=== PATIENT | female | born 1930 | race Caucasian/White ===

== ENCOUNTER → 2016-04-26 | Outpatient (CLI) | payer OTHER, BC ==
[~2016-04-26] MED LIST: ACTONEL35 MG PO; ALAVERT10 MG PO; AMLODIPINE BESY10 MG PO; APRESOLINE10 MG GT; ATIVAN0.5 MG GT; ATIVAN0.5 MG PO; ATIVAN1 MG PO; AZITHROMYCIN250 MG1 PO; Actonel PO; Ativan PO; BACID1 CAP PO; BISACODYL SUPP10 MG PR; BUSPAR10 MG PO; CALCIUM 600 +1 EA17 GT; CALCIUM 600 +1 EAC2 PO; CALCIUM 600 +1 EAC5 PO; CALCIUM500 M3 PO; CATAPRES-TTS 11 EACH TD; CLARITIN,ALAVAR10 MG PO; COLACE10 MG/ML PO; COUMADIN,JANTOVE4 MG PO; COUMADIN1 MG GT; COUMADIN2.5 MG PO; COUMADIN3 MG GT; COUMADIN3 MG PO; COUMADIN4 MG PO; DEPAKENE250 MG/5 M GT; DEPAKENE250 MG/5 M PO; DEPAKOTE SPRIN125 MG PO; DEPAKOTE125 MG PO; DIVALPROEX SOD125 M1 PO; DUONEB 2.5-0.5 M3 ML AEROSOL; DUONEB 2.5-0.5 M3 ML IH; ENDOCET 5-3251 EACH PO; FLAGYL500 MG PO; FLEET ENEMA-AD118 ML PR; FORTAMET500 MG PO; FUROSEMIDE40 MG GT; FUROSEMIDE40 MG PO; HEARTBURN RELIE75 MG PO; IBUPROFEN100 MG/5 M GT; IBUPROFEN600 MG PO; IBUPROFEN800 MG PO; ILOTYCIN1 GM BOTH EYES; IPRATROPIU0.2 MG/1 M IH; IPRATROPIUM; Invanz IV; K-TAB10 MEQ PO; LASIX10 MG/ML GT; LASIX10 MG/ML PO; LEVAQUIN500 MG PO; LEVOTHROID,SY0.15 MG PO; LISINOPRIL10 MG PO; LOSARTAN POTASS50 MG GT; Levothroid,Synthroid PO; METOPROLOL TART25 MG PO; MILK OF MAGN GT; MIRALAX17 GM GT; Maalox, Mylanta PO; NORVASC10 MG PO; NORVASC5 MG PO; NOVOLOG PE100 UNITS/ SC; OCUSOFT LID SC1 EACH TP; OLOPATADINE HCL5 ML BOTH EYES; PATADAY2.5 ML BOTH EYES; PERCOCET 5-3251 EACH PO; PERCOCET 7.5-31 EACH PO; PHENADOZ25 MG PR; POTASSIUM20 MEQ/11 GT; PRAVASTATIN SOD40 MG PO; PREDNISONE10 MG PO; PRILOSEC20 MG PO; PRINIVIL20 MG PO; PROMETHAZINE HC25 M1 PO; RANITIDINE15 MG/1 ML GT; REMERON30 M2 PO; REMERON45 MG PO; SENNA8.6 MG PO; SIMVASTATIN20 MG PO; SYNTHROID100 MCG PO; SYNTHROID150 MCG GT; SYNTHROID150 MCG PO; THERA-TABS M C1 EACH PO; THERAGRAN1 TABLET PO; TRAMADOL HCL50 MG GT; TUMS500 MG; TUMS500 MG PO; Tums PO; ULTRAM50 MG PO; VITAMIN D250000 UNIT PO; VITAMIN D400 INTUNI PO; Vitamin D, Drisdol PO; ZANTAC150 MG PO; ZITHROMAX250 MG PO; ZOFRAN4 MG PO; ZOLOFT20 MG/ML GT; Zocor PO
== END ==
LOC: RAD 13:30 → EDSTATUS 14:00 → RAD 14:00
PROC: 0DH67UZ Insertion of Feeding Device into Stomach, Via Natural or Artificial Opening (ICD-10-PCS; principal; 2016-04-26)
DX: K94.20 Gastrostomy complication, unspecified (principal)
CPT/HCPCS: C1769

== ENCOUNTER 2016-05-18 22:01 | Emergency (ER) | payer OTHER, BC ==
[~2016-05-18] VITALS: Ht 170.2 cm; Wt 72.7 kg
[2016-05-18 23:21] VITALS: BP 153/104
== END 2016-05-18 23:39 ==
LOC: EME 22:01
DX: Z43.1 Encounter for attention to gastrostomy (principal); I11.0 Hypertensive heart disease with heart failure; I50.9 Heart failure, unspecified; E11.9 Type 2 diabetes mellitus without complications; J44.9 Chronic obstructive pulmonary disease, unspecified; E05.90 Thyrotoxicosis, unspecified without thyrotoxic crisis or storm; F03.90 Unspecified dementia, unspecified severity, without behavioral disturbance, psychotic disturbance, mood disturbance, and anxiety; Z86.73 Personal history of transient ischemic attack (TIA), and cerebral infarction without residual deficits; Z79.01 Long term (current) use of anticoagulants
CPT/HCPCS: 74000; 99281; 99284

== ENCOUNTER → 2016-05-19 | Outpatient (CLI) | payer OTHER, BC | LOC: RAD 14:04 | PROC: 0DH67UZ Insertion of Feeding Device into Stomach, Via Natural or Artificial Opening (ICD-10-PCS; principal; 2016-05-19) | DX: K94.23 Gastrostomy malfunction (principal) | CPT/HCPCS: C1769 ==

== ENCOUNTER 2016-07-01 19:59 | Emergency (ER) | payer OTHER, BC ==
[~2016-07-01] VITALS: Ht 167.6 cm; Wt 60.3 kg
[2016-07-01 21:27] LABS: HEMATOCRIT 40.1 % (36.0-46.0); MCH 31.7 PG (29.0-34.0); MCHC 33.9 G/DL (30.0-36.0); MCV 93.5 FL (83-99); MEAN PLAT.VOLUME 11.5 uM^3 (9.5-12.4); PLATELET COUNT 114 K/uL (156-360); RBC DIS.WIDTH-CV 14.8 % (11.8-14.6); RED BLOOD COUNT 4.29 M/uL (3.80-5.20); WHITE BLOOD COUNT 5.6 K/uL (4.1-10.2)
[2016-07-01 21:35] LABS: CHLORIDE 100 mEq/L (99-109); POTASSIUM 3.7 mEq/L (3.7-5.4); SODIUM 140 mEq/L (136-147)
[2016-07-01 21:37] LABS: GLUCOSE 91 mg/dL (70-99); INTER. NORMALIZED RATIO 2.1; PROTHROMBIN TIME 21.5 (9.2-11.2)
[2016-07-01 21:38] LABS: ANION GAP 9 MEQ/L (2-14)
[2016-07-01 21:41] LABS: GFR ESTIMATE (CALCULATED) > 59 mL/min/; UREA NITROGEN (BUN) 16 mg/dL (9-23)
[2016-07-02 00:18] VITALS: BP 156/112
== END 2016-07-02 00:19 ==
LOC: EME 19:59
PROVIDERS: Emergency Medicine
PROC: 0D20XUZ Change Feeding Device in Upper Intestinal Tract, External Approach (ICD-10-PCS; principal; 2016-07-01)
DX: Z43.1 Encounter for attention to gastrostomy (principal); I11.0 Hypertensive heart disease with heart failure; I50.9 Heart failure, unspecified; E11.9 Type 2 diabetes mellitus without complications; J44.9 Chronic obstructive pulmonary disease, unspecified; Z86.73 Personal history of transient ischemic attack (TIA), and cerebral infarction without residual deficits; E05.90 Thyrotoxicosis, unspecified without thyrotoxic crisis or storm; F03.90 Unspecified dementia, unspecified severity, without behavioral disturbance, psychotic disturbance, mood disturbance, and anxiety; Z79.01 Long term (current) use of anticoagulants
CPT/HCPCS: 80048; 85027; 85610; 99281; 99284; C1766

== ENCOUNTER 2016-07-02 14:39 | Emergency (ER) | payer OTHER, BC ==
[~2016-07-02] VITALS: Ht 162.6 cm; Wt 64.7 kg
[2016-07-02 20:10] VITALS: BP 158/115
== END 2016-07-02 20:12 ==
LOC: EME 14:39
PROC: 0DH67UZ Insertion of Feeding Device into Stomach, Via Natural or Artificial Opening (ICD-10-PCS; principal; 2016-07-02)
DX: Z43.1 Encounter for attention to gastrostomy (principal); E11.9 Type 2 diabetes mellitus without complications; I11.0 Hypertensive heart disease with heart failure; I50.9 Heart failure, unspecified; E03.9 Hypothyroidism, unspecified; Z86.73 Personal history of transient ischemic attack (TIA), and cerebral infarction without residual deficits; Z88.6 Allergy status to analgesic agent; Z88.0 Allergy status to penicillin
CPT/HCPCS: 74000; 99281; 99284; J2060

== ENCOUNTER → 2016-07-03 | Outpatient (CLI) | payer OTHER, BC | LOC: RAD 14:00 | PROC: 0DH67UZ Insertion of Feeding Device into Stomach, Via Natural or Artificial Opening (ICD-10-PCS; principal; 2016-07-03) | DX: K94.20 Gastrostomy complication, unspecified (principal) | CPT/HCPCS: C1766; C1769 ==

== ENCOUNTER 2016-08-11 22:50 | Inpatient (IN) | payer OTHER, BC ==
[~2016-08-11] VITALS: Ht 162.6 cm; Wt 69.1 kg
[~2016-08-11 22:50] MED LIST changes: +TUMS500 MG GT
[2016-08-12 00:37] LABS: HEMATOCRIT 39.9 % (36.0-46.0); MCH 31.2 PG (29.0-34.0); MCHC 33.1 G/DL (30.0-36.0); MCV 94.3 FL (83-99); MEAN PLAT.VOLUME 11.7 uM^3 (9.5-12.4); PLATELET COUNT 108 K/uL (156-360); RBC DIS.WIDTH-CV 14.5 % (11.8-14.6); RBC DIS.WIDTH-SD 50.4 % (39-53); RED BLOOD COUNT 4.23 M/uL (3.80-5.20); WHITE BLOOD COUNT 5.7 K/uL (4.1-10.2)
[2016-08-12 00:45] LABS: CHLORIDE 98 mEq/L (99-109); POTASSIUM 3.9 mEq/L (3.7-5.4)
[2016-08-12 00:46] LABS: SODIUM 139 mEq/L (136-147)
[2016-08-12 00:48] LABS: GLUCOSE 107 mg/dL (70-99)
[2016-08-12 00:49] LABS: ANION GAP 10 MEQ/L (2-14)
[2016-08-12 00:50] LABS: TOTAL BILIRUBIN 0.7 mg/dL (0.0-1.0)
[2016-08-12 00:51] LABS: ALKALINE PHOSPHATASE 61 IU/L (3-129); GFR ESTIMATE (CALCULATED) > 59 mL/min/
[2016-08-12 00:53] LABS: UREA NITROGEN (BUN) 21 mg/dL (9-23)
[2016-08-12 00:55] LABS: LIPASE 3 U/L (1.0-51.0)
[2016-08-12 03:54] VITALS: BP 133/68
[2016-08-12 07:15] VITALS: BP 170/90
[2016-08-12 07:40] LABS: METH RESISTANT S AUREUS PCR POSITIVE (NEGATIVE)
[2016-08-12 07:44] LABS: PROBE CHECK PASS
[2016-08-12] MEDS ORDERED: LASIX10 MG/ML GT ×2 (11:43→11:44)
[2016-08-12 16:00] VITALS: BP 137/72
[2016-08-12 17:23] VITALS: BP 137/72
[2016-08-12] MEDS ORDERED: GUAIFENESIN WI120 ML GT (18:13)
[2016-08-12] MEDS ORDERED: ACIDOPHILUS1 EAC3 PO (18:15)
[2016-08-12] MEDS ORDERED: POTASSIUM20 MEQ/11 GT (18:18)
[2016-08-12] MEDS ORDERED: SYNTHROID200 MCG GT (18:22)
[2016-08-12] MEDS ORDERED: LEVAQUIN500 MG GT (18:23)
[2016-08-12] MEDS ORDERED: SERTRALINE20 MG/1 ML GT (18:28)
[2016-08-12] MEDS ORDERED: LOSARTAN POTASS25 MG GT (18:29)
[2016-08-12] MEDS ORDERED: COUMADIN2.5 MG GT (18:31)
[2016-08-12] MEDS ORDERED: WARFARIN SODIUM3 MG GT (18:33)
[2016-08-12] MEDS ORDERED: DULCOLAX10 MG PR (18:34)
[2016-08-12] MEDS ORDERED: PHILLIPS'400 MG/5 M GT (18:35)
[2016-08-12] MEDS ORDERED: FLEET ENEMA-AD118 ML PR (18:36)
[2016-08-12] MEDS ORDERED: DUONEB 2.5-0.5 M3 ML AEROSOL (18:37)
[2016-08-12] MEDS ORDERED: TRAZODONE HCL50 MG GT (18:38)
[2016-08-12 23:16] VITALS: BP 109/57
[2016-08-13 08:09] VITALS: BP 113/71
[2016-08-13 16:05] VITALS: BP 116/59
[2016-08-13 23:09] VITALS: BP 183/93
[2016-08-14 05:01] LABS: EOSINOPHIL (%) 1.9 % (0-5); EOSINOPHIL COUNT 0.1 K/uL (0-0.3); HEMATOCRIT 38.5 % (36.0-46.0); IMMATURE GRANULOCYTE (%) 0.3 % (0.0-0.7); INSTRUMENT ABS NEUTROPHIL CT 4.4 K/uL; MCH 31.3 PG (29.0-34.0); MCHC 32.7 G/DL (30.0-36.0); MCV 95.5 FL (83-99); MEAN PLAT.VOLUME 11.6 uM^3 (9.5-12.4); MONOCYTE (%) 12.8 % (3-12); MONOCYTE COUNT 0.8 K/uL (0-0.8); NEUTROPHIL COUNT 4.4 K/uL (1.8-6.4); PLATELET COUNT 123 K/uL (156-360); RBC DIS.WIDTH-CV 14.4 % (11.8-14.6); RED BLOOD COUNT 4.03 M/uL (3.80-5.20); WHITE BLOOD COUNT 6.4 K/uL (4.1-10.2)
[2016-08-14 05:26] LABS: CHLORIDE 106 mEq/L (99-109); SODIUM 142 mEq/L (136-147)
[2016-08-14 05:27] LABS: GLUCOSE 142 mg/dL (70-99)
[2016-08-14 05:29] LABS: ANION GAP 9 MEQ/L (2-14)
[2016-08-14 05:30] LABS: GFR ESTIMATE (CALCULATED) > 59 mL/min/; POTASSIUM 2.9 mEq/L (3.7-5.4)
[2016-08-14 05:31] LABS: GFR ESTIMATE (CALCULATED) > 59 mL/min/; UREA NITROGEN (BUN) 12 mg/dL (9-23)
[2016-08-14 05:32] LABS: UREA NITROGEN (BUN) 12 mg/dL (9-23)
[2016-08-14 06:50] VITALS: BP 208/100
[2016-08-14 07:02] LABS: VANCOMYCIN, TROUGH 9.6 MCG/ML (10-20)
[2016-08-14 07:45] VITALS: BP 140/83
[2016-08-14 15:59] VITALS: BP 113/56
[2016-08-14 19:21] VITALS: BP 120/63
[2016-08-14 23:37] VITALS: BP 125/63
[2016-08-15 03:53] VITALS: BP 137/65
[2016-08-15 07:45] VITALS: BP 150/90
[2016-08-15 07:54] LABS: ANION GAP 7 MEQ/L (2-14); CHLORIDE 110 MEQ/L (99-109); GFR ESTIMATE (CALCULATED) > 59 mL/min/; SAMPLE HEMOLYSIS CHECK 0; SAMPLE ICTERIC CHECK 0; SAMPLE LIPEMIA CHECK 0; SODIUM 143 MEQ/L (136-147); UREA NITROGEN (BUN) 6 mg/dL (9-23)
[2016-08-15 07:55] LABS: GLUCOSE 106 mg/dL (70-99); POTASSIUM 3.7 MEQ/L (3.7-5.4)
[2016-08-15 16:00] VITALS: BP 150/82
[2016-08-16 00:02] VITALS: BP 100/58
[2016-08-16 05:47] LABS: ALKALINE PHOSPHATASE 46 IU/L (3-129); ANION GAP 7 MEQ/L (2-14); CHLORIDE 110 MEQ/L (99-109); GFR ESTIMATE (CALCULATED) > 59 mL/min/; GLUCOSE 123 mg/dL (70-99); POTASSIUM 3.7 MEQ/L (3.7-5.4); SAMPLE HEMOLYSIS CHECK 0; SAMPLE ICTERIC CHECK 0; SAMPLE LIPEMIA CHECK 0; SODIUM 144 MEQ/L (136-147); TOTAL BILIRUBIN 0.5 MG/DL (0.0-1.0); UREA NITROGEN (BUN) 3 mg/dL (9-23)
[2016-08-16 08:00] VITALS: BP 105/72
[2016-08-17 00:14] VITALS: BP 124/59
[2016-08-17 07:13] VITALS: BP 163/84
[2016-08-17 15:42] VITALS: BP 142/70
[2016-08-17 23:42] VITALS: BP 112/71
[2016-08-18 03:33] VITALS: BP 128/56
[2016-08-18 07:25] VITALS: BP 140/82
[2016-08-18 15:51] VITALS: BP 131/61
[2016-08-18 20:47] VITALS: BP 148/78
[2016-08-18 23:48] VITALS: BP 141/72
[2016-08-19 03:17] VITALS: BP 144/68
[2016-08-19 07:03] LABS: HEMATOCRIT 26.9 % (36.0-46.0); MCH 32.7 PG (29.0-34.0); MEAN PLAT.VOLUME 11.8 uM^3 (9.5-12.4); PLATELET COUNT 139 K/uL (156-360); RBC DIS.WIDTH-CV 15.2 % (11.8-14.6); RBC DIS.WIDTH-SD 56.8 % (39-53)
[2016-08-19 07:07] LABS: MCV 102.3 FL (83-99); RED BLOOD COUNT 2.63 M/uL (3.80-5.20); WHITE BLOOD COUNT 12.5 K/uL (4.1-10.2)
[2016-08-19 08:00] LABS: ANION GAP 8 MEQ/L (2-14); CHLORIDE 114 MEQ/L (99-109); GLUCOSE 125 mg/dL (70-99); SAMPLE HEMOLYSIS CHECK 0; SAMPLE ICTERIC CHECK 0; SAMPLE LIPEMIA CHECK 0; SODIUM 142 MEQ/L (136-147); UREA NITROGEN (BUN) 10 mg/dL (9-23)
[2016-08-19 08:02] LABS: GFR ESTIMATE (CALCULATED) 30 mL/min/; POTASSIUM 5.5 MEQ/L (3.7-5.4)
[2016-08-19 08:34] VITALS: BP 154/66
[2016-08-19 16:37] VITALS: BP 139/59
[2016-08-19 19:26] VITALS: BP 138/70
[2016-08-19 23:25] VITALS: BP 143/72
[2016-08-20 07:28] LABS: EOSINOPHIL (%) 2.2 % (0-5); EOSINOPHIL COUNT 0.2 K/uL (0-0.3); HEMATOCRIT 24.4 % (36.0-46.0); IMMATURE GRANULOCYTE (%) 0.3 % (0.0-0.7); INSTRUMENT ABS NEUTROPHIL CT 6.3 K/uL; LYMPHOCYTE COUNT 1.3 K/uL (1.0-2.8); MCH 32.6 PG (29.0-34.0); MCV 102.1 FL (83-99); MEAN PLAT.VOLUME 11.7 uM^3 (9.5-12.4); MONOCYTE (%) 12.9 % (3-12); MONOCYTE COUNT 1.2 K/uL (0-0.8); NEUTROPHIL (%) 69.8 % (45-76); NEUTROPHIL COUNT 6.3 K/uL (1.8-6.4); PLATELET COUNT 152 K/uL (156-360); RBC DIS.WIDTH-CV 15.3 % (11.8-14.6); RBC DIS.WIDTH-SD 57.6 % (39-53); RED BLOOD COUNT 2.39 M/uL (3.80-5.20)
[2016-08-20 08:05] LABS: ANION GAP 6 MEQ/L (2-14); CHLORIDE 111 MEQ/L (99-109); GFR ESTIMATE (CALCULATED) 27 mL/min/; GLUCOSE 132 mg/dL (70-99); POTASSIUM 4.6 MEQ/L (3.7-5.4); SAMPLE HEMOLYSIS CHECK 0; SAMPLE ICTERIC CHECK 0; SAMPLE LIPEMIA CHECK 0; SODIUM 141 MEQ/L (136-147); UREA NITROGEN (BUN) 15 mg/dL (9-23)
[2016-08-20 08:28] VITALS: BP 153/71
[2016-08-20 09:53] LABS: VANCOMYCIN, TROUGH 23.4 MCG/ML (10-20)
[2016-08-20 12:30] VITALS: BP 139/81
[2016-08-20 16:25] VITALS: BP 112/68
[2016-08-20 20:24] VITALS: BP 120/68
[2016-08-20 23:14] LABS: HEMATOCRIT 26.8 % (36.0-46.0); MCV 101.1 FL (83-99)
[2016-08-21] VITALS (9 sets, daily range): BP systolic 108–131; BP diastolic 53–81
[2016-08-21 13:14] LABS: EOSINOPHIL (%) 2.2 % (0-5); EOSINOPHIL COUNT 0.2 K/uL (0-0.3); HEMATOCRIT 20.3 % (36.0-46.0); IMMATURE GRANULOCYTE (%) 0.3 % (0.0-0.7); INSTRUMENT ABS NEUTROPHIL CT 7.4 K/uL; LYMPHOCYTE COUNT 1.6 K/uL (1.0-2.8); MCH 32.8 PG (29.0-34.0); MCHC 32.5 G/DL (30.0-36.0); MEAN PLAT.VOLUME 12.1 uM^3 (9.5-12.4); MONOCYTE (%) 8.6 % (3-12); MONOCYTE COUNT 0.9 K/uL (0-0.8); NEUTROPHIL (%) 73.4 % (45-76); NEUTROPHIL COUNT 7.4 K/uL (1.8-6.4); PLATELET COUNT 144 K/uL (156-360); RBC DIS.WIDTH-CV 15.2 % (11.8-14.6); RBC DIS.WIDTH-SD 56.5 % (39-53); RED BLOOD COUNT 2.01 M/uL (3.80-5.20); WHITE BLOOD COUNT 10.1 K/uL (4.1-10.2)
[2016-08-21 13:54] LABS: ANION GAP 8 MEQ/L (2-14); CHLORIDE 113 MEQ/L (99-109); GFR ESTIMATE (CALCULATED) 28 mL/min/; GLUCOSE 116 mg/dL (70-99); POTASSIUM 4.3 MEQ/L (3.7-5.4); SAMPLE HEMOLYSIS CHECK 0; SAMPLE ICTERIC CHECK 0; SAMPLE LIPEMIA CHECK 0; SODIUM 141 MEQ/L (136-147)
[2016-08-21 13:57] LABS: UREA NITROGEN (BUN) 23 mg/dL (9-23)
[2016-08-22] VITALS (8 sets, daily range): BP systolic 136–162; BP diastolic 74–98
[2016-08-22 07:24] LABS: HEMATOCRIT 28.3 % (36.0-46.0); MCH 31.4 PG (29.0-34.0); MCHC 32.5 G/DL (30.0-36.0); MEAN PLAT.VOLUME 11.9 uM^3 (9.5-12.4); PLATELET COUNT 139 K/uL (156-360); RBC DIS.WIDTH-CV 15.4 % (11.8-14.6); RBC DIS.WIDTH-SD 54.6 % (39-53); WHITE BLOOD COUNT 8.5 K/uL (4.1-10.2)
[2016-08-22 07:25] LABS: MCV 96.6 FL (83-99); RED BLOOD COUNT 2.93 M/uL (3.80-5.20)
[2016-08-22 07:46] LABS: ANION GAP 10 MEQ/L (2-14); CHLORIDE 112 MEQ/L (99-109); GFR ESTIMATE (CALCULATED) 32 mL/min/; GLUCOSE 110 mg/dL (70-99); POTASSIUM 3.8 MEQ/L (3.7-5.4); SAMPLE HEMOLYSIS CHECK 0; SAMPLE ICTERIC CHECK 0; SAMPLE LIPEMIA CHECK 0; SODIUM 142 MEQ/L (136-147); UREA NITROGEN (BUN) 20 mg/dL (9-23)
[2016-08-23 06:50] VITALS: BP 103/54
[2016-08-23 07:29] LABS: HEMATOCRIT 28.8 % (36.0-46.0); MCH 31.4 PG (29.0-34.0); MCHC 32.3 G/DL (30.0-36.0); MCV 97.3 FL (83-99); MEAN PLAT.VOLUME 11.5 uM^3 (9.5-12.4); PLATELET COUNT 169 K/uL (156-360); RBC DIS.WIDTH-CV 15.3 % (11.8-14.6); RBC DIS.WIDTH-SD 54.2 % (39-53); RED BLOOD COUNT 2.96 M/uL (3.80-5.20)
[2016-08-23 08:02] LABS: ANION GAP 8 MEQ/L (2-14); CHLORIDE 113 MEQ/L (99-109); GFR ESTIMATE (CALCULATED) 35 mL/min/; GLUCOSE 106 mg/dL (70-99); POTASSIUM 3.9 MEQ/L (3.7-5.4); SAMPLE HEMOLYSIS CHECK 0; SAMPLE ICTERIC CHECK 0; SAMPLE LIPEMIA CHECK 0; SODIUM 145 MEQ/L (136-147); UREA NITROGEN (BUN) 23 mg/dL (9-23)
[2016-08-23 11:10] VITALS: BP 98/58
== END 2016-08-23 16:10 | DRG 327 ==
LOC: EME 22:50 → 2EAST 08-12 02:12 → EDOF 08-12 02:12 → 2EAST 08-12 03:37
PROVIDERS: Emergency Medicine; Family Medicine; Internal Medicine; Physician Assistant; Thoracic Surgery (Cardiothoracic Vascular Surgery)
PROC: 0DH60UZ Insertion of Feeding Device into Stomach, Open Approach (ICD-10-PCS; principal; 2016-08-18)
PROC: 0WQF0ZZ Repair Abdominal Wall, Open Approach (ICD-10-PCS; principal; 2016-08-18)
PROC: 30233N1 Transfusion of Nonautologous Red Blood Cells into Peripheral Vein, Percutaneous Approach (ICD-10-PCS; 2016-08-21)
DX: K94.23 Gastrostomy malfunction (principal); Y83.3 Surgical operation with formation of external stoma as the cause of abnormal reaction of the patient, or of later complication, without mention of misadventure at the time of the procedure; L03.311 Cellulitis of abdominal wall; K43.9 Ventral hernia without obstruction or gangrene; I10 Essential (primary) hypertension; F02.80 Dementia in other diseases classified elsewhere, unspecified severity, without behavioral disturbance, psychotic disturbance, mood disturbance, and anxiety; I48.2 Chronic atrial fibrillation; G30.9 Alzheimer's disease, unspecified; F32.9 Major depressive disorder, single episode, unspecified; I69.359 Hemiplegia and hemiparesis following cerebral infarction affecting unspecified side; J44.9 Chronic obstructive pulmonary disease, unspecified; E03.9 Hypothyroidism, unspecified; K21.9 Gastro-esophageal reflux disease without esophagitis; Z88.0 Allergy status to penicillin; Z90.710 Acquired absence of both cervix and uterus
CPT/HCPCS: 31720; 36415; 70450; 71010; 74000; 74177; 80048; 80053; 80202; 82565; 83605; 83690; 84520; 85014; 85018; 85025; 85027; 85610; 86900; 86901; 86920; 87040; 87070; 87075; 87205; 87641; 94640; 94640 76; 94799; 99202; 99281; 99285; B4087; J0360; J0690; J2060; J2765; J3010; J3370; J3480; J7030; J7050; P9016

== ENCOUNTER → 2016-08-30 | Outpatient (CLI) | payer OTHER, BC ==
[~2016-08-30] MED LIST changes: +ACIDOPHILUS1 EAC3 PO; +COUMADIN2.5 MG GT; +DULCOLAX10 MG PR; +GUAIFENESIN WI120 ML GT; +LEVAQUIN500 MG GT; +LOSARTAN POTASS25 MG GT; +PHILLIPS'400 MG/5 M GT; +SERTRALINE20 MG/1 ML GT; +SYNTHROID200 MCG GT; +TRAZODONE HCL50 MG GT; +WARFARIN SODIUM3 MG GT
== END ==
LOC: AMB 11:19
DX: Z48.815 Encounter for surgical aftercare following surgery on the digestive system (principal); K94.29 Other complications of gastrostomy
CPT/HCPCS: 99213

== ENCOUNTER → 2016-09-20 | Outpatient (CLI) | payer OTHER, BC | LOC: AMB 10:00 | DX: Z09 Encounter for follow-up examination after completed treatment for conditions other than malignant neoplasm (principal); Z98.890 Other specified postprocedural states; Z93.1 Gastrostomy status | CPT/HCPCS: 99211 ==